=== PATIENT | female | born 1930 | race Caucasian/White ===

== ENCOUNTER 2019-01-26 05:56 | Emergency (ER) | payer MEDICARE ==
--- NOTE | 2019-01-26 06:23 | EDM.PDOC ---
<Katy Tran - Last Filed: 01/26/19 06:47> ED HPI GENERAL MEDICAL PROBLEM - General Chief Complaint: Chest Pain Stated Complaint: CHEST PAINS Time Seen by Provider: 01/26/19 06:17 Source of Information: Reports: Patient History Limitations: Reports: No Limitations - History of Present Illness INITIAL COMMENTS - FREE TEXT/NARRATIVE: pt arrived with a different sensation in her chest. She is rating it a 2. She did not get sweaty. She was sob. She states this started about 10 pm last nite. She did have a episode earlier whwn she had increased swelling in her legs from the knees up. She diod increase her spirolactone and she did loose about 4-5 lbs. She did take a full sized asa prior to coming to the ER. She did take her cardizem early today. Onset: Other (about 10 pm last nite. ) Duration: Hour(s): Location: Reports: Chest Associated Symptoms: Reports: Chest Pain, Shortness of Breath Chest Pain Score (Numeric/FACES): 3 - Related Data Allergies Allergy/AdvReac Type Severity Reaction Status Date / Time amoxicillin [Amoxicillin] Allergy Rash Verified 01/26/19 05:58 atorvastatin calcium Allergy Cannot Verified 01/26/19 05:58 [From Lipitor] Remember colestipol Allergy Cannot Verified 01/26/19 05:58 Remember Iodinated Contrast- Oral and Allergy Cannot Verified 01/26/19 05:58 IV Dye Remember [Iodinated Contrast Media - IV Dye] metoprolol Allergy Other Verified 01/26/19 05:58 metoprolol tartrate Allergy Other Verified 01/26/19 05:58 [From Lopressor] caffeine AdvReac Nausea Verified 01/26/19 05:58 [From Darvon Compound-65] lisinopril AdvReac Cough Verified 01/26/19 05:58 meperidine HCl [From Demerol] AdvReac Nausea and Verified 01/26/19 05:58 Vomiting niacin AdvReac Muscle Verified 01/26/19 05:58 Aches pravastatin AdvReac Muscle Verified 01/26/19 05:58 Aches propoxyphene HCl AdvReac Nausea Verified 01/26/19 05:58 [From Darvon Compound-65] rosuvastatin calcium AdvReac Muscle Verified 01/26/19 05:58 [From Crestor] Aches Home Meds: Home Meds Multivitamin [Multi-Vitamin Daily] 0.5 tab PO DAILY 08/20/14 [History] Spironolactone [Aldactone] 1 tab PO DAILY 08/20/14 [History] Acetaminophen/Diphenhydramine [Tylenol Pm Ex-Strength Caplet] 0.5 tab PO DAILY 02/04/18 [History] Aspirin 325 mg PO DAILY 02/04/18 [History] Diltiazem [Cardizem SR] 60 mg PO BID 02/04/18 [History] Docusate Calcium 240 mg PO DAILY 02/04/18 [History] Rosuvastatin Calcium 0.5 tab PO ASDIRECTED 02/04/18 [History] [place]-3/DHA/Epa/Fish Oil [Fish Oil 1,000 mg Softgel] 1 tab PO DAILY 01/26/19 [ History] Past Medical History Other Cardiovascular History: cardioverted 08/17/15 Other Musculoskeletal History: right ankle (2012) - Past Surgical History Other Cardiovascular Surgeries/Procedures: 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 She has had open heart surgery--coronary bypass and she has had a ablation. ) Endocrine: Reports: No Symptoms GI/Abdominal: Reports: No Symptoms : Reports: No Symptoms Musculoskeletal: Reports: No Symptoms Skin: Reports: No Symptoms ED EXAM, GENERAL - Physical Exam Exam: See Below Free Text/Narrative:: pt arrived with pain in her left chest. This is low grade about a 2. She was mildly sob. Exam Limited By: No Limitations General Appearance: Alert, Mild Distress Ears: Normal TMs Nose: Normal Inspection Throat/Mouth: Normal Inspection Head: Atraumatic Neck: Normal Inspection Respiratory/Chest: No Respiratory Distress, Other (pt was mildly sob when she was active. ) Cardiovascular: Irregularly Irregular, Other (pt has a historyof atrial fib. ) GI/Abdominal: Soft, Non-Tender (Female) Exam: Deferred Rectal (Female) Exam: Deferred Back Exam: Normal Inspection Extremities: Normal Inspection Neurological: Alert, Oriented, Normal Cognition Psychiatric: Normal Affect Course - Vital Signs Last Recorded V/S: Last Vital Signs Temp 96.4 F 01/26/19 06:03 Pulse 79 01/26/19 06:32 Resp 11 L 01/26/19 06:32 BP 140/76 01/26/19 06:32 Pulse Ox 93 L 01/26/19 06:32 - Orders/Labs/Meds Orders: Active Orders 24 hr Category Date Time Status EKG Documentation Completion [RC] ASDIRECTED Care 01/26/19 06:14 Active EKG 12 Lead [EK] Routine Ther 01/26/19 06:14 Ordered Labs: Laboratory Tests 01/26/19 01/26/19 01/26/19 Range/Units 06:23 06:24 06:24 WBC 7.5 (4.5-11.0) K/uL RBC 4.11 (3.30-5.50) M/uL Hgb 12.9 D (12.0-15.0) g/dL Hct 38.7 (36.0-48.0) % MCV 94 (80-98) fL MCH 31 (27-31) pg MCHC 33 (32-36) % Plt Count 233 (150-400) K/uL Neut % (Auto) 66 (36-66) % Lymph % (Auto) 23 L (24-44) % [place] % (Auto) 8 H (2-6) % Eos % (Auto) 3 (2-4) % Baso % (Auto) 0 (0-1) % Sodium 133 L (140-148) mmol/L Potassium 4.0 (3.6-5.2) mmol/L Chloride 98 L (100-108) mmol/L Carbon Dioxide 25 (21-32) mmol/L Anion Gap 14.0 (5.0-14.0) mmol/L BUN 22 H D (7-18) mg/dL Creatinine 0.9 (0.6-1.0) mg/dL Est Cr Clr Drug Dosing 35.74 mL/min Estimated GFR (MDRD) 59 L (>60) Glucose 100 (74-106) mg/dL Calcium 9.6 D (8.5-10.1) mg/dL Total Bilirubin 0.4 (0.2-1.0) mg/dL AST 23 (15-37) U/L ALT 23 (12-78) U/L Alkaline Phosphatase 58 (46-116) U/L Troponin I < 0.017 (0.000-0.056) ng/mL NT-Pro-B Natriuret Pep (5-450) pg/mL Total Protein 7.1 (6.4-8.2) g/dL Albumin 3.8 (3.4-5.0) g/dL Globulin 3.3 (2.3-3.5) g/dL Albumin/Globulin Ratio 1.2 (1.2-2.2) 01/26/19 01/26/19 Range/Units 06:24 08:34 WBC (4.5-11.0) K/uL RBC (3.30-5.50) M/uL Hgb (12.0-15.0) g/dL Hct (36.0-48.0) % MCV (80-98) fL MCH (27-31) pg MCHC (32-36) % Plt Count (150-400) K/uL Neut % (Auto) (36-66) % Lymph % (Auto) (24-44) % [place] % (Auto) (2-6) % Eos % (Auto) (2-4) % Baso % (Auto) (0-1) % Sodium (140-148) mmol/L Potassium (3.6-5.2) mmol/L Chloride (100-108) mmol/L Carbon Dioxide (21-32) mmol/L Anion Gap (5.0-14.0) mmol/L BUN (7-18) mg/dL Creatinine (0.6-1.0) mg/dL Est Cr Clr Drug Dosing mL/min Estimated GFR (MDRD) (>60) Glucose (74-106) mg/dL Calcium (8.5-10.1) mg/dL Total Bilirubin (0.2-1.0) mg/dL AST (15-37) U/L ALT (12-78) U/L Alkaline Phosphatase (46-116) U/L Troponin I < 0.017 (0.000-0.056) ng/mL NT-Pro-B Natriuret Pep 578 H (5-450) pg/mL Total Protein (6.4-8.2) g/dL Albumin (3.4-5.0) g/dL Globulin (2.3-3.5) g/dL Albumin/Globulin Ratio (1.2-2.2) Meds: Medications Discontinued Medications Generic Name Dose Route Start Last Admin Trade Name Dieter PRN Reason Stop Dose Admin Al Hydroxide/Mg Hydroxide 15 0 ml 01/26/19 07:01 01/26/19 07:13 ml/ Lidocaine HCl 15 ml PO 01/26/19 07:02 30 ml ONETIME ONE Administration - Re-Assessments/Exams Free Text/Narrative Re-Assessment/Exam: 01/26/19 06:30 pt had a echo 12/13/18 which showed agood ejection at 60 %. She did have moderate mitral regurgitation and a mod mitral regurgitation. Her EKG shows atrial fib with a controlled ventricular rate. Departure - Departure Disposition: Home, Self-Care 01 Clinical Impression: Atypical chest pain Referrals: PCP,None [Primary Care Provider] - Forms: ED Department Discharge Additional Instructions: Continue with your regular medications, please follow-up with your primary care provider as scheduled call return to the emergency department worsening of symptoms <RubenrDerek - Last Filed: 01/26/19 09:15> Departure - Departure Time of Disposition: 09:15 Condition: Fair - Assessment/Plan Plan: Assessment Acuity = acute Site and laterality = atypical chest pain Etiology = unknown etiology Manifestations = none Location of injury = Home Lab values = CBC CMP unremarkable troponin negative 2 chest x-ray shows no acute process EKG demonstrates no ischemic changes Plan She is remained chest pain-free she did receive a GI cocktail which provided significant relief for her she did he asked to go home she does have follow-up with her primary care next week call return to the emergency department worsening of symptoms. This note was dictated using [employer] voice recognition software please call with any questions on syntax or grammar.
--- NOTE | 2019-01-26 06:55 | CRLCR ---
INDICATION: Chest discomfort. TECHNIQUE: Chest 1 view COMPARISON: None FINDINGS: Cardiovascular and mediastinum: Heart size and vasculature are normal in caliber and appearance. Sternal wires are present. Lungs and pleural spaces: Lungs are clear. No sign of infiltrate or mass. No sign of pleural effusion. No pneumothorax. Bones and soft tissues: No significant findings. IMPRESSION: No acute or significant findings. Dictated by Andre Hsu MD @ 01/26/2019 6:53:36 AM Dictated by: Andre Hsu MD @ 01/26/2019 06:53:40 (Electronically Signed)
[2019-01-26] MEDS: Alum Hydrox/Mag Hydrox/Simeth 15 ML, Lidocaine 2% 15 ML PO ONE ×2 (07:13)
[2019-01-26 09:20] VITALS: BP 128/73
== END 2019-01-26 09:27 | disposition home or self-care (01) ==
LOC: JP.ED 05:56
DX: R07.89 Other chest pain (principal); Z79.899 Other long term (current) drug therapy; Z91.041 Radiographic dye allergy status; Z88.8 Allergy status to other drugs, medicaments and biological substances; Z88.1 Allergy status to other antibiotic agents
CPT/HCPCS: 36415; 71045; 80053; 83880; 84484; 85025; 93005; 93010; 99285; A9270

== ENCOUNTER 2019-03-01 09:25 | Emergency (ER) | payer MEDICARE ==
[2019-03-01 09:50] VITALS: BP 158/88
[2019-03-01] MEDS ORDERED: Ondansetron 4 MG/2 ML SDV IVPUSH ONE (10:01)
[2019-03-01] MEDS ORDERED: Sodium Chloride 0.9% 10 ML Syringe FLUSH PRN (10:01)
--- NOTE | 2019-03-01 10:06 | EDM.PDOC ---
ED HPI GENERAL MEDICAL PROBLEM - General Chief Complaint: General Stated Complaint: weakness nausa Time Seen by Provider: 03/01/19 10:01 Source of Information: Reports: Patient, Family History Limitations: Reports: No Limitations - History of Present Illness INITIAL COMMENTS - FREE TEXT/NARRATIVE: pt arrived with a history of a UTI with a positive culture for Ecoli. She is now quite siob and is sleeping sitting up. She is not having chest pain. She does have a history of atrial fib. She is not on coumadin because of some bleeding problems. She does have a history in the past of some fluid overload. Onset: Gradual, Other (Pt has been ill for about 1 week. She is having chilling. ) Duration: Hour(s): Location: Reports: Chest, Abdomen Associated Symptoms: Reports: Shortness of Breath, Weakness - Related Data Allergies Allergy/AdvReac Type Severity Reaction Status Date / Time amoxicillin [Amoxicillin] Allergy Rash Verified 01/26/19 05:58 atorvastatin calcium Allergy Cannot Verified 01/26/19 05:58 [From Lipitor] Remember colestipol Allergy Cannot Verified 01/26/19 05:58 Remember Iodinated Contrast- Oral and Allergy Cannot Verified 01/26/19 05:58 IV Dye Remember [Iodinated Contrast Media - IV Dye] metoprolol Allergy Other Verified 01/26/19 05:58 metoprolol tartrate Allergy Other Verified 01/26/19 05:58 [From Lopressor] caffeine AdvReac Nausea Verified 01/26/19 05:58 [From Darvon Compound-65] lisinopril AdvReac Cough Verified 01/26/19 05:58 meperidine HCl [From Demerol] AdvReac Nausea and Verified 01/26/19 05:58 Vomiting niacin AdvReac Muscle Verified 01/26/19 05:58 Aches pravastatin AdvReac Muscle Verified 01/26/19 05:58 Aches propoxyphene HCl AdvReac Nausea Verified 01/26/19 05:58 [From Darvon Compound-65] rosuvastatin calcium AdvReac Muscle Verified 01/26/19 05:58 [From Crestor] Aches Home Meds: Home Meds Multivitamin [Multi-Vitamin Daily] 0.5 tab PO DAILY 08/20/14 [History] Spironolactone [Aldactone] 1 tab PO DAILY 08/20/14 [History] Acetaminophen/Diphenhydramine [Tylenol Pm Ex-Strength Caplet] 0.5 tab PO DAILY 02/04/18 [History] Aspirin 325 mg PO DAILY 02/04/18 [History] Diltiazem [Cardizem SR] 60 mg PO BID 02/04/18 [History] Docusate Calcium 240 mg PO DAILY 02/04/18 [History] Rosuvastatin Calcium 0.5 tab PO ASDIRECTED 02/04/18 [History] [place]-3/DHA/Epa/Fish Oil [Fish Oil 1,000 mg Softgel] 1 tab PO DAILY 01/26/19 [ History] Sulfamethoxazole/Trimethoprim [Sulfamethoxazole-Tmp Ds Tablet] 1 tab PO BID [History] Past Medical History HEENT History: Reports: Cataract Cardiovascular History: Reports: Afib, CAD, High Cholesterol, Hypertension Other Cardiovascular History: cardioverted 08/17/15 Respiratory History: Reports: Sleep Apnea Genitourinary History: Reports: Urinary Incontinence [employer] History: Reports: Other Musculoskeletal History: right ankle (2012) Oncologic (Cancer) History: Reports: Squamous Cell Carcinoma - Infectious Disease History Infectious Disease History: Reports: Chicken Pox, Measles, Mumps - Past Surgical History HEENT Surgical History: Reports: Adenoidectomy, Cataract Surgery, Tonsillectomy Other Cardiovascular Surgeries/Procedures: 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 ) Cardiovascular: Reports: Other (pt has a known history of atrial fib. ) Endocrine: Reports: No Symptoms GI/Abdominal: Reports: No Symptoms : Reports: No Symptoms Musculoskeletal: Reports: No Symptoms ED EXAM, GENERAL - Physical Exam Exam: See Below Free Text/Narrative:: pt was very weak and shakey on arrival. She was nauseated and she had notr eaten for several days. She had a UTI and he was on Macrobid and did not tolerate that. She was then placed on bactrim and she felt like that caused sob and nausea. Exam Limited By: No Limitations General Appearance: Alert, Anxious, Moderate Distress, Other (pupils are equal and reactive. ) Ears: Normal TMs Nose: Normal Inspection Throat/Mouth: Normal Inspection Head: Atraumatic Neck: Normal Inspection Respiratory/Chest: No Respiratory Distress Cardiovascular: Regular Rate, Rhythm GI/Abdominal: Soft, Non-Tender (Female) Exam: Deferred Rectal (Female) Exam: Deferred Back Exam: Normal Inspection Extremities: Normal Inspection Neurological: Alert, Oriented, Normal Cognition Psychiatric: Anxious Course - Vital Signs Last Recorded V/S: Last Vital Signs Temp 35.3 C 03/01/19 09:34 Pulse 79 03/01/19 09:34 Resp 14 03/01/19 09:34 BP 158/88 H 03/01/19 09:34 Pulse Ox 98 03/01/19 09:34 - Orders/Labs/Meds Labs: Laboratory Tests 03/01/19 03/01/19 03/01/19 Range/Units 09:53 09:53 09:57 WBC 5.7 (4.5-11.0) K/uL RBC 3.65 (3.30-5.50) M/uL Hgb 11.6 L (12.0-15.0) g/dL Hct 33.5 L (36.0-48.0) % MCV 92 (80-98) fL MCH 32 H (27-31) pg MCHC 35 (32-36) % Plt Count 383 (150-400) K/uL Neut % (Auto) 70 H (36-66) % Lymph % (Auto) 17 L (24-44) % [place] % (Auto) 8 H (2-6) % Eos % (Auto) 4 (2-4) % Baso % (Auto) 1 (0-1) % D-Dimer, Quantitative (0.0-400.0) ng/mL Sodium 136 L (140-148) mmol/L Potassium 4.0 (3.6-5.2) mmol/L Chloride 101 (100-108) mmol/L Carbon Dioxide 25 (21-32) mmol/L Anion Gap 14.0 (5.0-14.0) mmol/L BUN 14 (7-18) mg/dL Creatinine 0.9 (0.6-1.0) mg/dL Est Cr Clr Drug Dosing 35.74 mL/min Estimated GFR (MDRD) 59 L (>60) Glucose 103 (74-106) mg/dL Lactic Acid (0.4-2.0) mmol/L Calcium 9.8 (8.5-10.1) mg/dL Total Bilirubin 0.3 (0.2-1.0) mg/dL AST 28 (15-37) U/L ALT 44 D (12-78) U/L Alkaline Phosphatase 61 (46-116) U/L NT-Pro-B Natriuret Pep 1506 H (5-450) pg/mL Total Protein 7.0 (6.4-8.2) g/dL Albumin 3.1 L (3.4-5.0) g/dL Globulin 3.9 H (2.3-3.5) g/dL Albumin/Globulin Ratio 0.8 L (1.2-2.2) Urine Color Urine Appearance Urine pH (4.5-8.0) Ur Specific [place] (1.008-1.030) Urine Protein (NEGATIVE) mg/dL Urine Glucose (UA) (NEGATIVE) mg/dL Urine Ketones (NEGATIVE) mg/dL Urine Occult Blood (NEGATIVE) Urine Nitrite (NEGATIVE) Urine Bilirubin (NEGATIVE) Urine Urobilinogen (NORMAL) mg/dL Ur Leukocyte Esterase (NEGATIVE) Urine RBC (0-5) Urine WBC (0-5) Ur Epithelial Cells Amorphous Sediment Urine Bacteria Urine Mucus 03/01/19 03/01/19 03/01/19 Range/Units 09:57 09:57 10:20 WBC (4.5-11.0) K/uL RBC (3.30-5.50) M/uL Hgb (12.0-15.0) g/dL Hct (36.0-48.0) % MCV (80-98) fL MCH (27-31) pg MCHC (32-36) % Plt Count (150-400) K/uL Neut % (Auto) (36-66) % Lymph % (Auto) (24-44) % [place] % (Auto) (2-6) % Eos % (Auto) (2-4) % Baso % (Auto) (0-1) % D-Dimer, Quantitative 1120 H (0.0-400.0) ng/mL Sodium (140-148) mmol/L Potassium (3.6-5.2) mmol/L Chloride (100-108) mmol/L Carbon Dioxide (21-32) mmol/L Anion Gap (5.0-14.0) mmol/L BUN (7-18) mg/dL Creatinine (0.6-1.0) mg/dL Est Cr Clr Drug Dosing mL/min Estimated GFR (MDRD) (>60) Glucose (74-106) mg/dL Lactic Acid 1.2 (0.4-2.0) mmol/L Calcium (8.5-10.1) mg/dL Total Bilirubin (0.2-1.0) mg/dL AST (15-37) U/L ALT (12-78) U/L Alkaline Phosphatase (46-116) U/L NT-Pro-B Natriuret Pep (5-450) pg/mL Total Protein (6.4-8.2) g/dL Albumin (3.4-5.0) g/dL Globulin (2.3-3.5) g/dL Albumin/Globulin Ratio (1.2-2.2) Urine Color Yellow Urine Appearance Clear Urine pH 6.0 (4.5-8.0) Ur Specific [place] 1.005 L (1.008-1.030) Urine Protein Negative (NEGATIVE) mg/dL Urine Glucose (UA) Normal (NEGATIVE) mg/dL Urine Ketones Negative (NEGATIVE) mg/dL Urine Occult Blood Negative (NEGATIVE) Urine Nitrite Negative (NEGATIVE) Urine Bilirubin Negative (NEGATIVE) Urine Urobilinogen Normal (NORMAL) mg/dL Ur Leukocyte Esterase Negative (NEGATIVE) Urine RBC Not seen (0-5) Urine WBC 0-5 (0-5) Ur Epithelial Cells Few Amorphous Sediment Few Urine Bacteria Not seen Urine Mucus Not seen Meds: Medications Discontinued Medications Generic Name Dose Route Start Last Admin Trade Name Freq PRN Reason Stop Dose Admin Furosemide 40 mg 03/01/19 10:48 03/01/19 11:00 Lasix IVPUSH 03/01/19 10:49 40 mg ONETIME ONE Administration Ceftriaxone Sodium 1 gm/ 50 mls @ 100 mls/hr 03/01/19 13:07 03/01/19 13:32 Sodium Chloride IV 03/01/19 13:36 100 mls/hr ONETIME ONE Administration Ondansetron HCl 4 mg 03/01/19 10:01 03/01/19 10:16 Zofran IVPUSH 03/01/19 10:02 4 mg ONETIME ONE Administration Sodium Chloride 10 ml 03/01/19 10:01 03/01/19 10:16 Saline Flush FLUSH 10 ml ASDIRECTED PRN Administration Keep Vein Open - Re-Assessments/Exams Free Text/Narrative Re-Assessment/Exam: 03/01/19 14:08 pt had a urine check and the infection is much improved. She was quite sob and it did appear that she might be a little fluid overloaded. Her chest xray looked good but her bnp was quite high. She was given lasix 40 mg iv and she did put out 1000 cc, Her bereathing is better, She was able to eat some lunch. She is able to lie much flater in bed when she rests. Departure - Departure Time of Disposition: 13:43 Disposition: Home, Self-Care 01 Condition: Fair Clinical Impression: Fluid overload, UTI (urinary tract infection), Medication adverse effect - Discharge Information Instructions: Drug Allergy, [id number], Urinary Tract Infection, Adult, Easy- to-Read Referrals: Peyman Sutton, [employer] [Primary Care Provider] - Forms: ED Department Discharge Care Plan Goals: cont with same meds, stop bactrin or sulfa , zoforan 4mg sublng as needed for nausea, lasix 20mg saturday and sat and then stop appt with Peyman Acosta on sat.
--- NOTE | 2019-03-01 10:45 | CRLCR ---
Shortness of breath Two-view chest x-ray. COMPARISON: X-rays 01/26/2019. Findings: Stable cardiac mediastinal silhouette. Minimal apical pleural thickening which is not significantly changed. Lungs are clear of an acute airspace or interstitial process. No effusion or pneumothorax. IMPRESSION: 1. No acute pulmonary process. Dictated by Mahi Cunningham MD @ Mar 01 2019 10:43AM Signed by Dr. Mahi Cunningham @ Mar 01 2019 10:43AM
[2019-03-01] MEDS ORDERED: Furosemide 40 MG/4 ML VIAL IVPUSH ONE (10:48)
[2019-03-01] MEDS ORDERED: cefTRIAXone 1 GM in Sodium Chloride 0.9% 50 ML IV ONE (13:07)
--- NOTE | 2019-03-01 13:09 | CRLUS ---
INDICATION: Shortness breath elevated D-dimer TECHNIQUE: A compression venous ultrasound exam was performed of both lower extremities using balbuena scale imaging, color Doppler and spectral Doppler analysis. FINDINGS: Sonographic imaging of the lower extremities demonstrates normal compressibility and color Doppler venous blood flow within the common femoral, deep femoral, and proximal greater saphenous veins. Within the thighs the femoral veins are patent and compressible. At a lower level the popliteal and posterior tibial veins also show normal compressibility and color Doppler venous blood flow. IMPRESSION: Normal venous ultrasound exam. No evidence of deep vein thrombosis within either the left or right lower extremity. Dictated by Mahi Cunningham MD @ Mar 01 2019 1:06PM Signed by Dr. Mahi Cunningham @ Mar 01 2019 1:07PM
== END 2019-03-01 14:31 | disposition home or self-care (01) ==
LOC: JP.ED 09:25
DX: E87.70 Fluid overload, unspecified (principal); T50.905A Adverse effect of unspecified drugs, medicaments and biological substances, initial encounter; N39.0 Urinary tract infection, site not specified; I10 Essential (primary) hypertension; I48.91 Unspecified atrial fibrillation; Z98.49 Cataract extraction status, unspecified eye; Z98.890 Other specified postprocedural states; Z79.82 Long term (current) use of aspirin; Z79.899 Other long term (current) drug therapy; Z90.710 Acquired absence of both cervix and uterus; Z91.041 Radiographic dye allergy status; Z88.1 Allergy status to other antibiotic agents; Z88.8 Allergy status to other drugs, medicaments and biological substances
CPT/HCPCS: 36415; 71046; 80053; 81001; 83605; 83880; 85025; 85379; 93005; 93010; 93970; 96365; 96375; 99285; J0696; J1940; J2405; J7050

== ENCOUNTER 2020-08-11 16:20 | Emergency (ER) | payer MEDICARE | END 2020-08-11 18:24 | disposition left against medical advice (07) | LOC: JP.ED 16:20 | DX: Z53.21 Procedure and treatment not carried out due to patient leaving prior to being seen by health care provider (principal) ==

== ENCOUNTER 2020-08-12 17:13 | Observation (INO) | payer MEDICARE ==
[2020-08-12] MEDS ORDERED: Polyethylene Glycol 3350 Powder 17 GM Packet PO PRN (17:20)
[2020-08-12] MEDS ORDERED: Sodium Chloride 0.9% 10 ML Syringe FLUSH PRN (17:20)
[2020-08-12] MEDS ORDERED: Ondansetron 4 MG/2 ML SDV IV PRN (17:20)
--- NOTE | 2020-08-12 17:23 | PCM.HP.2 ---
H&P History of Present Illness - General Date of Service: 08/12/20 Admit Problem/Dx: Admission Diagnosis/Problem Admission Diagnosis/Problem Weakness Source of Information: Patient, Provider, RN Notes Reviewed History Limitations: Reports: No Limitations - History of Present Illness Initial Comments - Free Text/Narative: Ms. Deal is an 89-year-old woman who was admitted as a direct admission from the clinic to observation status with weakness and anorexia secondary to COVID-19. She recently experienced the of her from COVID-19 and then developed Covid infection herself. To this point has not had significant respiratory compromise although she does feel somewhat short of breath. Respiratory rate has been stable and oxygen saturation has been excellent on room air. She has become progressively more weak to the point that she is unable to function at home and care for herself. Family is unable to provide care or assistance so she is not safe to return home. She has experienced low- grade headache as well as myalgias and nausea. No diarrhea or significant fever. - Related Data Allergies/Adverse Reactions: Allergies Allergy/AdvReac Type Severity Reaction Status Date / Time amoxicillin [Amoxicillin] Allergy Rash Verified 01/26/19 05:58 atorvastatin calcium Allergy Cannot Verified 01/26/19 05:58 [From Lipitor] Remember colestipol Allergy Cannot Verified 01/26/19 05:58 Remember Iodinated Contrast Media Allergy Cannot Verified 01/26/19 05:58 [Iodinated Contrast Media - Remember IV Dye] metoprolol Allergy Other Verified 01/26/19 05:58 metoprolol tartrate Allergy Other Verified 01/26/19 05:58 [From Lopressor] caffeine AdvReac Nausea Verified 01/26/19 05:58 [From Darvon Compound-65] lisinopril AdvReac Cough Verified 01/26/19 05:58 meperidine HCl [From Demerol] AdvReac Nausea and Verified 01/26/19 05:58 Vomiting niacin AdvReac Muscle Verified 01/26/19 05:58 Aches pravastatin AdvReac Muscle Verified 01/26/19 05:58 Aches propoxyphene HCl AdvReac Nausea Verified 01/26/19 05:58 [From Darvon Compound-65] rosuvastatin calcium AdvReac Muscle Verified 01/26/19 05:58 [From Crestor] Aches Home Medications: Home Meds Multivitamin [Multi-Vitamin Daily] 0.5 tab PO DAILY 08/20/14 [History] Spironolactone [Aldactone] 1 tab PO DAILY 08/20/14 [History] Acetaminophen/Diphenhydramine [Tylenol Pm Ex-Strength Caplet] 0.5 tab PO DAILY 02/04/18 [History] Aspirin 325 mg PO DAILY 02/04/18 [History] Diltiazem [Cardizem SR] 60 mg PO BID 02/04/18 [History] Docusate Calcium 240 mg PO DAILY 02/04/18 [History] Rosuvastatin Calcium 0.5 tab PO ASDIRECTED 02/04/18 [History] [place]-3/DHA/Epa/Fish Oil [Fish Oil 1,000 mg Softgel] 1 tab PO DAILY 01/26/19 [History] Sulfamethoxazole/Trimethoprim [Sulfamethoxazole-Tmp Ds Tablet] 1 tab PO BID 03/01/19 [History] Past Medical History HEENT History: Reports: Cataract Cardiovascular History: Reports: Afib, CAD, High Cholesterol, Hypertension Other Cardiovascular History: cardioverted 08/17/15 Respiratory History: Reports: Sleep Apnea Genitourinary History: Reports: Urinary Incontinence 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: 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: Other Musculoskeletal History: right ankle (2012) Oncologic (Cancer) History: Reports: Squamous Cell Carcinoma - Infectious Disease History Infectious Disease History: Reports: Chicken Pox, Measles, Mumps - Past Surgical History HEENT Surgical History: Reports: Adenoidectomy, Cataract Surgery, Tonsillectomy Other Cardiovascular Surgeries/Procedures: 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 Denies: Fever, Chills HEENT: Reports: Headaches. Denies: Dysphasia, Ear Pain, Eye Pain, Hearing Changes, Sinus Congestion, Sore Throat Pulmonary: Reports: Shortness of Breath. Denies: Wheezing, Pleuritic Chest Pain, Cough, Sputum, Hemoptysis Cardiovascular: Reports: Dyspnea on Exertion, Lightheadedness. Denies: Chest Pain, Palpitations, Orthopnea, PND, Edema Gastrointestinal: Reports: Constipation, Decreased Appetite, Nausea. Denies: Diarrhea, Difficulty Swallowing, Distension, Hematemesis, Hematochezia, Melena, Vomiting Genitourinary: Reports: No Symptoms Musculoskeletal: Reports: No Symptoms, Muscle Pain, Muscle Stiffness. Denies: Joint Pain, Joint Swelling Skin: Reports: No Symptoms Psychiatric: Reports: No Symptoms Neurological: Reports: No Symptoms Hematologic/Lymphatic: Reports: No Symptoms Immunologic: Reports: No Symptoms Exam - Exam Exam: See Below - Exam Quality Assessment: DVT Prophylaxis General: Alert, Oriented, Cooperative, Mild Distress HEENT: Conjunctiva Clear, Hearing Intact, Mucosa Moist & [place], Normal Nasal Septum, Posterior Pharynx Clear, Pupils Equal Neck: Supple, Trachea Midline, +2 Carotid Pulse wo Bruit Lungs: Clear to Auscultation, Normal Respiratory Effort Cardiovascular: Regular Rate, Regular Rhythm, Normal S1, Normal S2. No: Systolic Murmur, Diastolic Murmur GI/Abdominal Exam: Soft, Non-Tender, No Organomegaly, No Distention Back Exam: Normal Inspection, Full Range of Motion Extremities: Non-Tender, No Pedal Edema Skin: Warm, Dry, Intact Neurological: Cranial Nerves Intact, Strength Equal Bilateral, Normal Speech, Normal Tone, Sensation Intact. No: Focal Deficit Neuro Extensive - Mental Status: Alert, Oriented x3, Normal Mood/Affect, Normal Cognition, Memory Intact - Patient Data Result Diagrams: 08/12/20 17:52 08/12/20 17:52 *Q Meaningful Use (ADM) - VTE Risk Assess *Q Each Risk Factor Represents 1 Point: Congestive heart failure (CHF) Total Score 1 Point Risk Factors: 1 Each Risk Factor Represents 2 Points: None Total Score 2 Point Risk Factors: 0 Each Risk Factor Represents 3 Points: Age 75 Years or Greater Total Score 3 Point Risk Factors: 3 Each Risk Factor Represents 5 Points: None Total Score 5 Point Risk Factors: 0 Venous Thromboembolism Risk Factor Score *Q: 4 Problem List Initiated/Reviewed/Updated: Yes Orders Last 24hrs: Active Orders 24 hr Category Date Time Status Patient Status [ADT] Routine ADT 08/12/20 17:20 Ordered Ambulate [RC] QID Care 08/12/20 17:20 Ordered Height and Weight [RC] DAILY Care 08/12/20 17:20 Ordered Intake and Output [RC] QSHIFT Care 08/12/20 17:20 Ordered Notify Provider Vital Signs [RC] ASDIRECTED Care 08/12/20 17:20 Ordered Oxygen Therapy [RC] PRN Care 08/12/20 17:20 Ordered Up With Assistance [RC] ASDIRECTED Care 08/12/20 17:20 Ordered Up to Chair [RC] QID Care 08/12/20 17:20 Ordered VTE/DVT Education [RC] Per Unit Routine Care 08/12/20 17:20 Ordered Vital Signs [RC] Q4H Care 08/12/20 17:20 Ordered PT Evaluation and Treatment [CONS] Routine Cons 08/12/20 17:20 Ordered Regular Diet [DIET] Diet 08/12/20 Dinner Ordered C-REACTIVE PROTEIN [CHEM] Stat Lab 08/12/20 17:20 Ordered CBC WITH AUTO DIFF [HEME] Stat Lab 08/12/20 17:20 Ordered COMPREHENSIVE METABOLIC PN,CMP [CHEM] Stat Lab 08/12/20 17:20 Ordered Acetaminophen [TylenoL] Med 08/12/20 17:20 Ordered 650 mg PO Q4H PRN Enoxaparin [Lovenox] Med 08/12/20 17:30 Ordered 40 mg SUBCUT DAILY Ondansetron [Zofran] Med 08/12/20 17:20 Ordered 4 mg IV Q4H PRN Sodium Chloride 0.9% [Saline Flush] Med 08/12/20 17:20 Ordered 10 ml FLUSH ASDIRECTED PRN polyethylene glycoL 3350 [MiraLAX] Med 08/12/20 17:20 Ordered 17 gm PO DAILY PRN Saline Lock Insert [OM.PC] Routine Oth 08/12/20 17:20 Ordered Resuscitation Status Routine Resus Stat 08/12/20 17:20 Ordered Assessment/Plan Comment:: ASSESSMENT AND PLAN [id number] had symptoms of progressive weakness and is unable to care for herself at home with no safe discharge plan back to home. No evidence of significant respiratory compromise and does not require specific treatment at the present time. -Supportive care GENERALIZED WEAKNESS-currently unable to care for herself at home -Physical therapy consult -Consider snf placement HYPONATREMIA-moderate likely secondary to dehydration -Cautious hydration -Reassess sodium level in a.m. CONGESTIVE HEART FAILURE-well compensated with no evidence of exacerbation -Continue outpatient medical therapy MAINTENANCE ISSUES -DVT prophylaxis; Lovenox 40 mg subcu daily -GI prophylaxis; not indicated -Carroll catheter; not indicated -Nutrition; regular diet -Nicotine dependence; not required CODE STATUS-DNR/DNI ADMISSION STATUS-this patient will be admitted to observation status, expect no more than a one night hospital stay for evaluation and management of problems as outlined above. DISPOSITION-anticipate discharge to home after the hospital stay. PRIMARY CARE PROVIDER- - Mortality Measure Prognosis:: Good
[2020-08-12] MEDS ORDERED: Sodium Chloride 0.9% 1,000 ML IV SCH (18:30)
[2020-08-12] MEDS: Acetaminophen 325 MG Tab PO PRN ×2 (18:58→23:56)
[2020-08-12] MEDS ORDERED: Enoxaparin 30 MG/0.3 ML Syringe SUBCUT SCH (19:30)
[2020-08-12] MEDS ORDERED: Ondansetron 4 MG/2 ML SDV IVPUSH ONE (22:29)
[2020-08-13] MEDS ORDERED: LORazepam 0.5 MG Tab PO ONE (00:27)
[2020-08-13] MEDS: Spironolactone 25 MG Tab PO SCH (09:47)
[2020-08-13] MEDS: Aspirin 325 MG Tab.EC PO SCH (09:47)
[2020-08-13] MEDS: Docusate Sodium 100 MG Cap PO SCH (09:47)
[2020-08-13] MEDS: Diltiazem IR 30 MG Tab PO SCH ×4 (09:47→22:04)
[2020-08-13] MEDS ORDERED: Ondansetron 4 MG Tab.DIS PO PRN (16:12)
--- NOTE | 2020-08-13 16:49 | PCM.PN ---
- General Info Date of Service: 08/13/20 Subjective Update: Ms. Deal has felt improved since admission, overall strength and appetite have improved. She denies any respiratory symptoms at the present time. Vital signs have remained stable and she has been afebrile. Functional Status: Reports: Tolerating Diet, Urinating - Review of Systems General: Reports: Weakness. Denies: Fever, Chills Pulmonary: Reports: No Symptoms Cardiovascular: Reports: No Symptoms Gastrointestinal: Reports: No Symptoms Genitourinary: Reports: No Symptoms - Patient Data Vitals - Most Recent: Last Vital Signs Temp 99 F 08/13/20 14:51 Pulse 66 08/13/20 14:51 Resp 16 08/13/20 14:51 BP 130/69 08/13/20 14:51 Pulse Ox 98 08/13/20 14:51 Weight - Most Recent: 126 lb I&O - Last 24 Hours: Intake & Output 08/13/20 08/13/20 08/13/20 06:59 14:59 22:59 Intake Total 1104 1385 Balance 1104 1385 Lab Results Last 24 Hours: Laboratory Results - last 24 hr 08/12/20 08/12/20 08/13/20 Range/Units 17:52 17:52 05:30 WBC 4.9 (4.5-11.0) K/uL RBC 4.17 (3.30-5.50) M/uL Hgb 12.6 (12.0-15.0) g/dL Hct 37.5 (36.0-48.0) % MCV 90 (80-98) fL MCH 30 (27-31) pg MCHC 34 (32-36) % Plt Count 231 (150-400) K/uL Neut % (Auto) 60 (36-66) % Lymph % (Auto) 29 (24-44) % [place] % (Auto) 8 H (2-6) % Eos % (Auto) 3 (2-4) % Baso % (Auto) 0 (0-1) % Sodium 124 L 125 L (140-148) mmol/L Potassium 3.8 4.0 (3.6-5.2) mmol/L Chloride 89 L 94 L (100-108) mmol/L Carbon Dioxide 25 23 (21-32) mmol/L Anion Gap 13.8 12.0 (5.0-14.0) mmol/L BUN 17 14 (7-18) mg/dL Creatinine 1.1 H 0.9 (0.6-1.0) mg/dL Est Cr Clr Drug Dosing 28.68 35.05 mL/min Estimated GFR (MDRD) 47 L 59 L (>60) Glucose 92 86 (74-106) mg/dL Calcium 8.8 8.8 (8.5-10.1) mg/dL Total Bilirubin 0.6 D (0.2-1.0) mg/dL AST 20 (15-37) U/L ALT 25 (12-78) U/L Alkaline Phosphatase 65 (46-116) U/L C-Reactive Protein < 0.05 (0.0-0.3) mg/dL Total Protein 6.6 (6.4-8.2) g/dL Albumin 3.5 (3.4-5.0) g/dL Globulin 3.1 (2.3-3.5) g/dL Albumin/Globulin Ratio 1.1 L (1.2-2.2) Med Orders - Current: Current Medications Acetaminophen (Tylenol) 650 mg PO Q4H PRN PRN Reason: Pain (Mild 1-3)/fever Last Admin: 08/12/20 23:56 Dose: 650 mg Documented by: Aspirin (Ecotrin) 325 mg PO DAILY COUNT INCLUDES THE [facility] Last Admin: 08/13/20 09:47 Dose: 325 mg Documented by: Diltiazem HCl (Cardizem) 30 mg PO Q6HR COUNT INCLUDES THE [facility] Last Admin: 08/13/20 15:35 Dose: 30 mg Documented by: Docusate Sodium (Colace) 200 mg PO DAILY COUNT INCLUDES THE [facility] Last Admin: 08/13/20 09:47 Dose: 200 mg Documented by: Enoxaparin Sodium (Lovenox) 30 mg SUBCUT BEDTIME COUNT INCLUDES THE [facility] Fluoxetine HCl (Prozac) 10 mg PO DAILY COUNT INCLUDES THE [facility] Ondansetron HCl (Zofran Odt) 4 mg PO Q4H PRN PRN Reason: Nausea/Vomiting Last Admin: 08/13/20 16:18 Dose: 4 mg Documented by: Polyethylene Glycol (Miralax) 17 gm PO DAILY PRN PRN Reason: Constipation Rosuvastatin Calcium (Crestor) 2.5 mg PO MoWeFr@0900 COUNT INCLUDES THE [facility] Spironolactone (Aldactone) 100 mg PO DAILY COUNT INCLUDES THE [facility] Last Admin: 10/31/20 09:47 Dose: 100 mg Documented by: Discontinued Medications Enoxaparin Sodium (Lovenox) 30 mg SUBCUT DAILY COUNT INCLUDES THE [facility] Last Admin: 08/12/20 19:44 Dose: 30 mg Documented by: Sodium Chloride (Normal Saline) 1,000 mls @ 50 mls/hr IV ASDIRECTED COUNT INCLUDES THE [facility] Last Admin: 08/12/20 19:44 Dose: 50 mls/hr Documented by: Lorazepam (Ativan) 0.5 mg PO ONETIME ONE Stop: 08/13/20 00:28 Last Admin: 08/13/20 01:58 Dose: 0.5 mg Documented by: Ondansetron HCl (Zofran) 4 mg IV Q4H PRN PRN Reason: Nausea/Vomiting Last Admin: 08/12/20 19:47 Dose: 4 mg Documented by: Ondansetron HCl (Zofran) 4 mg IVPUSH ONETIME ONE Stop: 08/12/20 22:30 Last Admin: 08/12/20 22:39 Dose: 4 mg Documented by: Sodium Chloride (Saline Flush) 10 ml FLUSH ASDIRECTED PRN PRN Reason: Keep Vein Open - Exam Quality Assessment: DVT Prophylaxis General: Alert, Oriented, Cooperative, Mild Distress Lungs: Clear to Auscultation, Normal Respiratory Effort Cardiovascular: Regular Rate, Regular Rhythm, No Murmurs GI/Abdominal Exam: Soft, Non-Tender, No Organomegaly, No Distention Extremities: Non-Tender, No Pedal Edema Sepsis Event Note - Evaluation Sepsis Screening Result: No Definite Risk - Focused Exam Vital Signs: Vital Signs Temp Pulse Resp BP Pulse Ox 08/13/20 14:51 99 F 66 16 130/69 98 08/13/20 11:06 97.5 F 72 16 135/65 99 08/13/20 07:21 97.5 F 50 L 16 151/90 H 98 - Problem List Review Problem List Initiated/Reviewed/Updated: Yes - My Orders Last 24 Hours: My Active Orders 08/12/20 Dinner Regular Diet [DIET] 08/12/20 17:20 Patient Status [ADT] Routine Ambulate [RC] QID Height and Weight [RC] 0500 Intake and Output [RC] QSHIFT Notify Provider Vital Signs [RC] ASDIRECTED Oxygen Therapy [RC] PRN Up With Assistance [RC] ASDIRECTED Up to Chair [RC] QID VTE/DVT Education [RC] Per Unit Routine Vital Signs [RC] Q4H PT Evaluation and Treatment [CONS] Routine Acetaminophen [TylenoL] 650 mg PO Q4H PRN polyethylene glycoL 3350 [MiraLAX] 17 gm PO DAILY PRN Saline Lock Insert [OM.PC] Routine 08/12/20 18:11 Resuscitation Status Routine 08/13/20 09:00 Aspirin [Ecotrin] 325 mg PO DAILY Docusate Sodium [Colace] 200 mg PO DAILY Spironolactone [Aldactone] 100 mg PO DAILY 08/13/20 10:00 Diltiazem IR [Cardizem] 30 mg PO Q6HR 08/13/20 16:12 Ondansetron [Zofran ODT] 4 mg PO Q4H PRN Peripheral IV Discontinue [OM.PC] Routine 08/13/20 21:00 Enoxaparin [Lovenox] 30 mg SUBCUT BEDTIME 08/14/20 05:00 BASIC METABOLIC PANEL,BMP [CHEM] Timed 08/14/20 09:00 FLUoxetine [PROzac] 10 mg PO DAILY 08/15/20 09:00 Rosuvastatin [Crestor] 2.5 mg PO MoWeFr@0900 - Plan Plan:: ASSESSMENT AND PLAN [id number] had symptoms of progressive weakness and is unable to care for herself at home with no safe discharge plan back to home. No evidence of significant respiratory compromise and does not require specific treatment at the present time. Overall her weakness is improved from admission as well as appetite -Supportive care -Ambulate with assistance GENERALIZED WEAKNESS-currently unable to care for herself at home -Physical therapy consult -Consider halfway placement HYPONATREMIA-moderate likely secondary to dehydration. Modestly improved with hydration -Discontinue IV fluids -Reassess sodium level in a.m. CONGESTIVE HEART FAILURE-well compensated with no evidence of exacerbation -Continue outpatient medical therapy ANXIETY -Prozac 10 mg p.o. daily MAINTENANCE ISSUES -DVT prophylaxis; Lovenox 40 mg subcu daily -GI prophylaxis; not indicated -Carroll catheter; not indicated -Nutrition; regular diet -Nicotine dependence; not required CODE STATUS-DNR/DNI ADMISSION STATUS-this patient will be admitted to observation status, expect no more than a one night hospital stay for evaluation and management of problems as outlined above. DISPOSITION-anticipate discharge to home after the hospital stay. PRIMARY CARE PROVIDER-
[2020-08-13] MEDS ORDERED: LORazepam 0.5 MG Tab PO PRN (20:00)
[2020-08-13] MEDS ORDERED: Enoxaparin 30 MG/0.3 ML Syringe SUBCUT SCH (21:00)
[2020-08-13] MEDS ORDERED: Melatonin 3 MG Tab PO SCH (21:00)
[2020-08-14] MEDS: Diltiazem IR 30 MG Tab PO SCH (04:42)
[2020-08-14] MEDS ORDERED: Diltiazem IR 30 MG Tab PO SCH (08:00)
[2020-08-14] MEDS: Spironolactone 25 MG Tab PO SCH (08:32)
[2020-08-14] MEDS: Aspirin 325 MG Tab.EC PO SCH (08:33)
[2020-08-14] MEDS: Docusate Sodium 100 MG Cap PO SCH (08:33)
[2020-08-14] MEDS ORDERED: FLUoxetine 10 MG Cap PO SCH (09:00)
[2020-08-14 10:51] VITALS: BP 136/74; PULSE 82
--- NOTE | 2020-08-14 11:49 | PCM.DCSUM1 ---
Discharge Summary - Hospital Course Brief History: Ms. Deal is an 89-year-old woman who was admitted to observation status as a direct admission from the clinic with weakness and instability secondary to COVID-19. - Discharge Data Discharge Date: 08/14/20 Discharge Disposition: Home, Self-Care 01 Condition: Good - Referral to Home Health Primary Care Physician: Oneal Byrd MD - Discharge Diagnosis/Problem(s) (1) COVID-19 SNOMED Code(s): 827338427 ICD Code: U07.1 - COVID-19 Status: Acute Current Visit: Yes (2) Anxiety SNOMED Code(s): 49877577 ICD Code: F41.9 - ANXIETY DISORDER, UNSPECIFIED Status: Acute Current Visit: Yes (3) Weakness SNOMED Code(s): 86620698 ICD Code: R53.1 - WEAKNESS Status: Acute Current Visit: Yes (4) Hyponatremia SNOMED Code(s): 40438940 ICD Code: E87.1 - HYPO-OSMOLALITY AND HYPONATREMIA Status: Acute Current Visit: Yes - Patient Summary/Data Consults: Consultations 08/12/20 17:20 PT Evaluation and Treatment [CONS] Routine Please Evaluate and Treat. PT Reason for Consult: weakness This query below is only for informational purposes and is not editable. Hospital Course: Ms. Deal is an 89-year-old woman who was admitted as a direct admission from the clinic to observation status with weakness and anorexia secondary to COVID-19. She recently experienced the of her from COVID-19 and then developed Covid infection herself. To this point has not had significant respiratory compromise although she does feel somewhat short of breath. Respiratory rate has been stable and oxygen saturation has been excellent on room air. She has become progressively more weak to the point that she is unable to function at home and care for herself. Family is unable to provide care or assistance so she is not safe to return home. She has experienced low- grade headache as well as myalgias and nausea. No diarrhea or significant fever. On admission she was identified to have hyponatremia with a sodium of 125, this was felt to be secondary to dehydration. She was given IV normal saline for the first 24 hours and by the time of discharge sodium level had improved significantly but not normalized. She was also noted to be extremely anxious and was started on Prozac 10 mg p.o. daily as well as very low-dose lorazepam 0.25 mg every 4 hours as needed for anxiety. She will be discharged to home with the same dose of Prozac, certainly dose could be increased when she is seen for follow-up by primary care provider if she is tolerating it at that time. She will receive a very limited supply of lorazepam going home until the Prozac is able to kick in for her anxiety. She improved significantly over a few days and was eating well by the time of discharge and also transferring and ambulating independently. Follow-up appointment will be scheduled with your primary care provider within 1 week. Activity will be as tolerated and she will resume her usual diet. - Patient Instructions Diet: Usual Diet as Tolerated Activity: As Tolerated Other/Special Instructions: Please schedule follow-up appointment with primary care provider within 1 week - Discharge Plan *PRESCRIPTION DRUG MONITORING PROGRAM REVIEWED*: Not Applicable *COPY OF PRESCRIPTION DRUG MONITORING REPORT IN PATIENT ADAN: Not Applicable Prescriptions/Med Rec: LORazepam [Ativan] 0.25 mg PO Q4H PRN #6 tablet PRN Reason: Anxiety FLUoxetine [PROzac] 10 mg PO DAILY #30 cap Ondansetron [Zofran ODT] 4 mg PO Q4H PRN #8 tab.dis PRN Reason: Nausea/Vomiting Home Medications: Home Meds Multivitamin [Multi-Vitamin Daily] 0.5 tab PO DAILY 08/20/14 [History] Spironolactone [Aldactone] 1 tab PO DAILY 08/20/14 [History] Acetaminophen/Diphenhydramine [Tylenol Pm Ex-Strength Caplet] 0.5 tab PO DAILY 02/04/18 [History] Aspirin 325 mg PO DAILY 02/04/18 [History] Diltiazem [Cardizem SR] 60 mg PO BID 02/04/18 [History] Docusate Calcium 240 mg PO DAILY 02/04/18 [History] Rosuvastatin Calcium 2.5 mg PO MOWEFR@0900 02/04/18 [History] [place]-3/DHA/Epa/Fish Oil [Fish Oil 1,000 mg Softgel] 1 tab PO DAILY 01/26/19 [History] FLUoxetine [PROzac] 10 mg PO DAILY #30 cap 08/14/20 [Rx] LORazepam [Ativan] 0.25 mg PO Q4H PRN #6 tablet 08/14/20 [Rx] Ondansetron [Zofran ODT] 4 mg PO Q4H PRN #8 tab.dis 08/14/20 [Rx] - Discharge Summary/Plan Comment DC Time >30 min.: No - Patient Data Vitals - Most Recent: Last Vital Signs Temp 98.8 F 08/14/20 10:49 Pulse 82 08/14/20 10:49 Resp 16 08/14/20 10:49 BP 136/74 08/14/20 10:49 Pulse Ox 98 08/14/20 10:49 Weight - Most Recent: 123 lb 1.6 oz I&O - Last 24 hours: Intake & Output 08/13/20 08/14/20 08/14/20 23:59 06:59 14:59 Intake Total 320 Output Total Balance 320 Lab Results - Last 24 hrs: Laboratory Results - last 24 hr 08/14/20 Range/Units 05:20 Sodium 132 L (140-148) mmol/L Potassium 3.8 (3.6-5.2) mmol/L Chloride 100 (100-108) mmol/L Carbon Dioxide 23 (21-32) mmol/L Anion Gap 12.8 (5.0-14.0) mmol/L BUN 14 (7-18) mg/dL Creatinine 0.9 (0.6-1.0) mg/dL Est Cr Clr Drug Dosing 35.05 mL/min Estimated GFR (MDRD) 59 L (>60) Glucose 88 (74-106) mg/dL Calcium 8.6 (8.5-10.1) mg/dL Med Orders - Current: Current Medications Acetaminophen (Tylenol) 650 mg PO Q4H PRN PRN Reason: Pain (Mild 1-3)/fever Last Admin: 08/12/20 23:56 Dose: 650 mg Documented by: Aspirin (Ecotrin) 325 mg PO DAILY [facility] Last Admin: 08/14/20 08:33 Dose: 325 mg Documented by: Diltiazem HCl (Cardizem) 30 mg PO Q6H [facility] Last Admin: 08/14/20 08:32 Dose: 30 mg Documented by: Docusate Sodium (Colace) 200 mg PO DAILY [facility] Last Admin: 08/14/20 08:33 Dose: 200 mg Documented by: Enoxaparin Sodium (Lovenox) 30 mg SUBCUT BEDTIME [facility] Last Admin: 08/13/20 20:27 Dose: 30 mg Documented by: Fluoxetine HCl (Prozac) 10 mg PO DAILY [facility] Last Admin: 08/14/20 10:25 Dose: 10 mg Documented by: Lorazepam (Ativan) 0.25 mg PO Q4H PRN PRN Reason: Anxiety Last Admin: 08/13/20 20:28 Dose: 0.25 mg Documented by: Melatonin (Melatonin) 6 mg PO BEDTIME [facility] Last Admin: 08/13/20 20:28 Dose: 6 mg Documented by: Ondansetron HCl (Zofran Odt) 4 mg PO Q4H PRN PRN Reason: Nausea/Vomiting Last Admin: 08/13/20 16:18 Dose: 4 mg Documented by: Polyethylene Glycol (Miralax) 17 gm PO DAILY PRN PRN Reason: Constipation Rosuvastatin Calcium (Crestor) 2.5 mg PO MoWeFr@0900 [facility] Spironolactone (Aldactone) 100 mg PO DAILY [facility] Last Admin: 08/14/20 08:32 Dose: 100 mg Documented by: Discontinued Medications Diltiazem HCl (Cardizem) 30 mg PO Q6HR [facility] Last Admin: 08/14/20 04:42 Dose: Not Given Documented by: Enoxaparin Sodium (Lovenox) 30 mg SUBCUT DAILY [facility] Last Admin: 08/12/20 19:44 Dose: 30 mg Documented by: Sodium Chloride (Normal Saline) 1,000 mls @ 50 mls/hr IV ASDIRECTED [facility] Last Admin: 08/12/20 19:44 Dose: 50 mls/hr Documented by: Lorazepam (Ativan) 0.5 mg PO ONETIME ONE Stop: 08/13/20 00:28 Last Admin: 08/13/20 01:58 Dose: 0.5 mg Documented by: Ondansetron HCl (Zofran) 4 mg IV Q4H PRN PRN Reason: Nausea/Vomiting Last Admin: 08/12/20 19:47 Dose: 4 mg Documented by: Ondansetron HCl (Zofran) 4 mg IVPUSH ONETIME ONE Stop: 08/12/20 22:30 Last Admin: 08/12/20 22:39 Dose: 4 mg Documented by: Sodium Chloride (Saline Flush) 10 ml FLUSH ASDIRECTED PRN PRN Reason: Keep Vein Open - Exam Quality Assessment: Reports: DVT Prophylaxis General: Reports: Alert, Oriented, Cooperative, Mild Distress Lungs: Reports: Clear to Auscultation, Normal Respiratory Effort Cardiovascular: Reports: Regular Rate, Regular Rhythm, No Murmurs GI/Abdominal Exam: Soft, Non-Tender, No Organomegaly, No Distention Extremities: Non-Tender, No Pedal Edema
[2020-08-15] MEDS ORDERED: Rosuvastatin 10 MG Tab PO SCH (09:00)
== END 2020-08-14 13:15 | disposition home or self-care (01) ==
LOC: JP.2SS 17:13
PROVIDERS: ADMIT Hospitalist; ATTEND Hospitalist
DX: U07.1 COVID-19 (principal); I48.91 Unspecified atrial fibrillation; I25.10 Atherosclerotic heart disease of native coronary artery without angina pectoris; I11.0 Hypertensive heart disease with heart failure; E78.00 Pure hypercholesterolemia, unspecified; E87.1 Hypo-osmolality and hyponatremia; I50.9 Heart failure, unspecified; F41.9 Anxiety disorder, unspecified; Z88.1 Allergy status to other antibiotic agents; Z98.890 Other specified postprocedural states; Z88.8 Allergy status to other drugs, medicaments and biological substances; Z91.041 Radiographic dye allergy status; Z79.899 Other long term (current) drug therapy; Z79.82 Long term (current) use of aspirin
CPT/HCPCS: 36415; 80048; 80053; 85025; 86140; 96372; 96374; 96376; A9270; G0378; G0379; J1650; J2405; J7030